=== PATIENT | female | born 1965 | race Caucasian/White ===

== ENCOUNTER 2017-07-03 17:33 | Emergency (ER) | payer OTHER ==
[~2017-07-03] VITALS: Ht 152.4 cm; Wt 69.0 kg
[2017-07-03 17:43] VITALS: BP 188/77; PULSE 81; RESP 16; TEMP 98.6; O2SAT 97
[2017-07-03] MEDS ORDERED: SYNT175T PO (18:44)
[2017-07-03] MEDS ORDERED: CLON1TAB PO (18:44)
[2017-07-03] MEDS ORDERED: DULO20 PO (18:44)
[2017-07-03] MEDS ORDERED: TRAZ100T6 PO (18:44)
[2017-07-03] MEDS ORDERED: ABIL2TAB2 PO (18:44)
--- NOTE | 2017-07-03 19:04 | RADRPT ---
EXAM DATE/TIME: 07/03/2017 18:42 [place] COMPARISON: No previous studies available for comparison. INDICATIONS : Left leg swelling. MEDICAL HISTORY : Deep vein thrombosis. Anxiety. Depression. SURGICAL HISTORY : None. ENCOUNTER: Initial ACUITY: 1 day PAIN SCORE: 10 LOCATION: Left leg. TECHNIQUE: Venous ultrasound of the leg was performed from the inguinal ligament to the proximal calf. Real-blank e, color Doppler and spectral tracing, compression and augmentation techniques were used. FINDINGS: There is normal compressibility of the deep venous system from the inguinal region to the proximal ca lf. No echogenic clot is seen in the lumen of the common femoral, femoral, popliteal, and posterior tibial veins. There is a normal response of the venous system to proximal and distal augmentation an d respiration. CONCLUSION: No DVT of the left lower extremity. Raoul Caba MD on July 03, 2017 at 19:02 Board Certified Radiologist. This report was verified electronically.
--- NOTE | 2017-07-03 19:13 | PD ---
HPI Chief Complaint: Edema Time Seen by Provider: 18:39 Travel History International Travel<30 days: No Contact w/Intl Traveler<30days: No Traveled to known affect area: No History of Present Illness HPI noted swelling to left leg over last 2 days denies h/o smoking, cancer or hormone replacement use. but did have a dvt when she was in her teens. pcp [facility] patient to follow up in [place] to r/o dvt PFS Past Medical History Anxiety: Yes Depression: Yes Diminished Hearing: No Deep Vein Thrombosis: Yes Tetanus Vaccination: Unknown ?: Not Social History Alcohol Use: Yes (occ) Tobacco Use: No Substance Use: No Allergies-Medications (Allergen,Severity, Reaction): Coded Allergies: Sulfa (Sulfonamide Antibiotics) (Verified Allergy, Severe, hives and difficulty breathing, 07/03/17) scopolamine (Verified Allergy, Severe, blurry vision and facial swelling, 07/03/17) Reported Meds & Prescriptions Reported Meds & Active Scripts Active Reported Abilify (Aripiprazole) 2 Mg Tab 1 Mg PO DAILY Clonazepam 1 Mg Tab 1 Mg PO TID Trazodone (Trazodone HCl) 100 Mg Tablet 100 Mg PO HS Cymbalta DR (Duloxetine HCl) 20 Mg Capdr 20 Mg PO DAILY Synthroid (Levothyroxine Sodium) 175 Mcg Tab 175 Mcg PO DAILY Review of Systems Except as stated in HPI: all other systems reviewed are Neg Musculoskeletal: Positive: Pain (to left leg along with mild swelling) Physical Exam Narrative GENERAL: SKIN: Warm and dry. HEAD: Atraumatic. Normocephalic. EYES: Pupils equal and round. No scleral icterus. No injection or drainage. ENT: No nasal bleeding or discharge. Mucous membranes pink and moist. NECK: Trachea midline. No JVD. CARDIOVASCULAR: Regular rate and rhythm. RESPIRATORY: No accessory muscle use. Clear to auscultation. Breath sounds equal bilaterally. GASTROINTESTINAL: Abdomen soft, non-tender, nondistended. Hepatic and splenic margins not palpable. MUSCULOSKELETAL: Extremities without clubbing, cyanosis, No obvious deformities. mild lle edema trace, nonpitting, no cellulitic changes, no streaking noted NEUROLOGICAL: Awake and alert. No obvious cranial nerve deficits. Motor grossly within normal limits. Five out of 5 muscle strength in the arms and legs. Normal speech. PSYCHIATRIC: Appropriate mood and affect; insight and judgment normal. Data Data Last Documented VS Orders Orders Us Leg Venous Doppler (07/03/17 18:39) MDM Medical Decision Making Medical Screen Exam Complete: Yes Emergency Medical Condition: Yes Differential Diagnosis dvt v bakers cyst v peripheral edema Narrative Course ultrasound review revealed no e/o dvt or mason's cyst...will d/c home to follow up with pcp Diagnosis Primary Impression: Mild peripheral edema Patient Instructions: General Instructions, Leg Edema (ED) Disposition: 01 DISCHARGE HOME Condition: Stable Hermes Brennan MD Jul 03, 2017 19:13
[2017-07-03 19:38] VITALS: BP 143/82
== END 2017-07-03 19:42 | disposition home or self-care (01) ==
LOC: PHED 17:33
DX: R60.0 Localized edema (principal); Z86.718 Personal history of other venous thrombosis and embolism; M79.605 Pain in left leg
CPT/HCPCS: 93971; 99284